=== PATIENT | female | born 1965 | race Caucasian/White ===

== ENCOUNTER → 2017-09-14 | Outpatient (CLI) | payer BC ==
[~2017-09-14] VITALS: Ht 157.5 cm; Wt 52.2 kg
[~2017-09-14] MED LIST: BLACK COHOSH EX80 MG PO; SYNTHROID50 MCG PO; VITAMIN D35000 UNIT PO
== END | disposition home or self-care (01) ==
LOC: AMB 09:30
PROC: 0DJD8ZZ Inspection of Lower Intestinal Tract, Via Natural or Artificial Opening Endoscopic (ICD-10-PCS; principal; 2017-09-14)
DX: Z12.11 Encounter for screening for malignant neoplasm of colon (principal); K90.41 Non-celiac gluten sensitivity; E03.9 Hypothyroidism, unspecified; Z87.891 Personal history of nicotine dependence; Z83.3 Family history of diabetes mellitus; Z81.8 Family history of other mental and behavioral disorders
CPT/HCPCS: J2250